=== PATIENT | female | born 1990 | race Caucasian/White ===

== ENCOUNTER → 2022-09-25 | Outpatient (CLI) | payer BC ==
--- NOTE | 2022-10-14 03:00 | EST ---
EXERCISE STRESS The patient was monitored between September 25, 2022 and October 01, 2022. Baseline rhythm revealed a sinus mechanism with episode of ventricular bigeminy with associated symptoms of irregular heartbeat. No atrial fibrillation was noted. No pauses were noted. Symptoms of lightheadedness correlated with sinus tachycardia. MMKISHORE / DRAKE: [id number] /
== END | disposition home or self-care (01) ==
LOC: RADECHMAIN 07:58
PROVIDERS: ATTEND Family Medicine
DX: I49.3 Ventricular premature depolarization (principal); R42 Dizziness and giddiness
CPT/HCPCS: 93270